=== PATIENT | male | born 2000 | race Caucasian/White ===

== ENCOUNTER 2023-08-01 19:06 | Emergency (ER) | payer MEDICAID, SELFPAY ==
[2023-08-01 19:07] VITALS: BP 186/107; PULSE 139; RESP 18; TEMP 36.7; O2SAT 98; BMI 40.6
--- NOTE | 2023-08-01 19:19 | ED_ITS ---
HPI - General Adult 2 General: Chief complaint: Wound/Laceration Stated complaint: etoh,psych eval Time Seen by Provider: 08/01/23 19:07 Source: patient and EMS Mode of arrival: EMS Limitations: no limitations History of Present Illness: 23-year-old male who states he has been drinking heavily today states he got angry and punched a window he does have a laceration to his right forearm. He had made statements to his grandfather about hurting himself but he states that he was just angry and intoxicated he denies being suicidal or homicidal to me he denied any SI to EMS as well. Associated symptoms: Deny chest pain, dyspnea, headache(s), nausea, rash or vomiting Review of Systems 2 Const: Denies: fever(s), chills, body aches or change in appetite ENMT: Denies: throat pain or dental pain Card: Denies: chest pain Resp: Denies: dyspnea GI: Denies: abdominal pain, nausea, vomiting or diarrhea Musc: Denies: neck pain or back pain Skin/Breast: Denies: rash Neuro: Denies: headache(s) Psych: Denies: depression or suicidal ideation Physical Exam 2 Const: COMMON NORMALS: no acute distress, patient oriented x3 and healthy appearing HENMT: COMMON NORMALS: normocephalic and atraumatic HEAD & SCALP: n ormocephalic and atraumatic Neck/C-Spine: COMMON NORMALS: full ROM and supple Chest: COMMONS NORMALS: normal inspection of the chest and normal palpation of entire chest wall Resp: COMMON NORMALS: normal respiratory effort, No retractions, No use of accessory muscles and clear to auscultation bilaterally AUSCULTATION: clear to auscultation bilaterally Cardio: COMMON NORMALS: regular rate, regular rhythm and No murmurs present (Cardio) RATE: regular rate RHYTHM: regular rhythm Extremity: COMMON NORMALS: full ROM NARRATIVE EXTREMITY EXAM: 2 lacerations noted to right forearm 1 i s roughly 2 cm others 4 involving subcu please controlled no tendon involvement no active bleeding Neuro: COMMON NORMALS: patient oriented x3, moves all extremities and no focal motor deficits Psych: COMMON NORMALS: mental status grossly normal, Normal thought process present and cooperative THOUGHT PROCESS: Normal thought process present Skin: COMMON NORMALS: no rashes or lesions noted and no wounds GENERAL SKIN EXAM: no rashes or lesions noted Course 2 Vital Signs: Vital signs: Vital Signs Temperature 98.0 F 08/01/23 19:07 Pulse Rate 99 08/01/23 21:07 Respiratory Rate 18 08/01/23 19:07 Blood Pressure 180/107 08/01/23 19:45 Pulse Oximetry 95 08/01/23 21:07 Oxygen Delivery Me thod Room Air 08/01/23 19:07 MDM - General Adult Medical Decision Making Patient presents here with lacerations to his right forearm he got from punching a window patient is adamant he is not suicidal or homicidal he is intoxicated I did ask him again at discharge and he denied states he just got angry and punched the window he is to have his sutures removed in 2 weeks he stable for discharge return if worsening. Laceration was repaired by midlevel [facility] patient refused x-rays here. Lab Data 08/01/23 20:22 08/01/23 19:22 Laboratory Results WBC 7.48 10^3/uL (3.29-11.43) 08/01/23 20:22 Corrected WBC Cancelled 08/01/23 19:22 RBC 4.64 10^6/uL (3.85-5.65) 08/01/23 20:22 Hgb 15.30 g/dL (11.27-16.99) 08/01/23 20:22 Hct 41.7 % (37-53) 08/01/23 20:22 MCV 89.9 fl (82-101) 08/01/23 20:22 MCH 33.0 pg (27-33) 08/01/23 20:22 MCHC 36.7 g/dL (30-55) 08/01/23 20:22 RDW 12.4 % (12.1-15.1) 08/01/23 20:22 Plt Count 203 10^3/cmm (157-399) 08/01/23 20:22 MPV 10.0 fL (7.4-10.4) 08/01/23 20:22 Gran % Cancelled 08/01/23 19:22 Neut % (Auto) 71.3 % 08/01/23 20:22 Lymph % (Auto) 17.2 % 08/01/23 20:22 Carter % (Auto) 6.3 % 08/01/23 20:22 Eos % (Auto) 4.0 % 08/01/23 20:22 Baso % (Auto) 0.8 % 08/01/23 20:22 Neut # (Auto) 5.33 10^3/uL (1.8-7.7) 08/01/23 20:22 Lymph # (Auto) 1.3 10^3/uL (0.8-4.8) 08/01/23 20:22 Carter # (Auto) 0.5 10^3/uL (0.2-0.9) 08/01/23 20:22 Eos # (Auto) 0.3 10^3/uL (0.0-0.8) 08/01/23 20:22 Baso # (Auto) 0.1 10^3/uL (0.0-0.1) 08/01/23 20:22 Absolute Gran (auto) Cancelled 08/01/23 19:22 Nucleated RBC % (auto) 0 % 08/01/23 20:22 Nucleated RBCs # 0.0 /100WBC 08/01/23 20:22 Sodium 142 mmol/L (136-145) 08/01/23 19:22 Potassium 3.7 mmol/L (3.5-5.1) 08/01/23 19:22 Chloride 105 mmol/L (98-107) 08/01/23 19:22 Carbon Dioxide 21 mmol/L (22-29) L 08/01/23 19:22 Anion Gap 19.7 (5-19) H 08/01/23 19:22 BUN 7 mg/dL (6-20) 08/01/23 19:22 Creatinine 0.8 mg/dL (0.7-1.2) 08/01/23 19:22 GFR Calculation 118.8 mL/min (90-130) 08/01/23 19:22 Glucose 105 mg/dL (65-115) 08/01/23 19:22 Calculated Osmolality 292 mOsm/kg (285-295) 08/01/23 19:22 Calcium 8.4 mg/dL (8.5-10.5) L 08/01/23 19:22 Total Bilirubin 0.4 mg/dL (0.15-1.2) 08/01/23 19:22 AST 22 U/L (0-40) 08/01/23 19:22 ALT 26 U/L (0-41) 08/01/23 19:22 Alkaline Phosphatase 96 U/L (40-130) 08/01/23 19:22 Total Protein 7.1 g/dL (6.6-8.7) 08/01/23 19:22 Albumin 4.3 g/dL (3.5-5.2) 08/01/23 19:22 Globulin 2.8 g/dL (1.3-4.6) 08/01/23 19:22 Salicylates < 0.3 mg/dL (3-10) L 08/01/23 19:22 Acetaminophen < 5.0 ug/mL (10-30) L 08/01/23 19:22 Ethyl Alcohol 119 mg/dL (0-10) H 08/01/23 19:22 No radiology studies performed this visit Discharge Plan Discharge Patient Disposition: Home Clinical Impression: Laceration of right forearm Condition: Stable Discharge Orders: Discharge ED (Routine); Ordered 08/01/23 Ordered By: Blue Fairchild Discharge Diet: Advance as tolerated Discharge Activity: Resume usual activity Patient Instructions: Laceration (ED) Activity Restrictions/Additional Instructions: suture removal in 14 days Coding Level of Care Code ED Psychiatric Specialist for Maryam Avery
[2023-08-01 19:39] VITALS: BP 186/107
[2023-08-01 19:43] LABS: Alanine Aminotransferase 26 U/L (0-41); Albumin Level 4.3 g/dL (3.5-5.2); Alcohol Level 119 mg/dL (0-10); Alkaline Phosphatase 96 U/L (40-130); Anion Gap 19.7 (5-19); Aspartate Amino Transferase 22 U/L (0-40); Blood Urea Nitrogen 7 mg/dL (6-20); Calcium 8.4 mg/dL (8.5-10.5); Carbon Dioxide 21 mmol/L (22-29); Chloride 105 mmol/L (98-107); Creatinine Clr Calc Pharmacy 203.3851; Globulin 2.8 g/dL (1.3-4.6); Glomerular Filtration Rate 118.8 mL/min (90-130); Glucose 105 mg/dL (65-115); Osmolality Calculated 292 mOsm/kg (285-295); Potassium 3.7 mmol/L (3.5-5.1); Sodium 142 mmol/L (136-145); Total Bilirubin 0.4 mg/dL (0.15-1.2); Total Protein 7.1 g/dL (6.6-8.7)
[2023-08-01 19:45] VITALS: BP 180/107
[2023-08-01] MEDS: lidocaine 1% INJ 10 mL (per mL) 20 ML INTRADERMA (19:55)
[2023-08-01 20:02] LABS: Acetaminophen < 5.0 ug/mL (10-30); Salicylate < 0.3 mg/dL (3-10)
[2023-08-01 20:28] LABS: Basophils # 0.1 10^3/uL (0.0-0.1); Basophils % 0.8 %; Eosinophils # 0.3 10^3/uL (0.0-0.8); Hematocrit 41.7 % (37-53); Lymphocytes # 1.3 10^3/uL (0.8-4.8); Lymphocytes % 17.2 %; Mean Corpuscular HGB Conc 36.7 g/dL (30-55); Mean Corpuscular Volume 89.9 fl (82-101); Monocytes # 0.5 10^3/uL (0.2-0.9); Monocytes % 6.3 %; Neutrophils # 5.33 10^3/uL (1.8-7.7); Neutrophils % 71.3 %; Nucleated Red Blood Cells % 0 %; Platelet Count 203 10^3/cmm (157-399); Red Blood Count 4.64 10^6/uL (3.85-5.65); Red Cell Distribution Width 12.4 % (12.1-15.1); White Blood Count 7.48 10^3/uL (3.29-11.43)
--- NOTE | 2023-08-01 20:43 | PC.NURSE ---
pt asked for his phone and belongings back. Gurinder said yes, he was not holding him as a SI pt.
[2023-08-01 21:07] VITALS: PULSE 99; O2SAT 95
--- NOTE | 2023-08-01 21:17 | W.ED.WOUNDLC ---
Documented by User: DANK Lange 08/01/23 21:20 HPI - Wound/Laceration General: Chief Complaint: Wound/Laceration Stated Complaint: etoh,psych eval Time Seen by Provider: 08/01/23 19:07 Source: patient and EMS Mode of arrival: EMS Limitations: no limitations Procedures Laceration Laceration 1: Site: upper extremity Side (If applicable): right Size (cm): 9 Description: linear Depth: involves muscle layer Local Anesthetic: lidocaine 2% and with epi Amount of anesthesia used (mL): 10 Pre-repair: wound explored, irrigated extensively and deep structures intact Skin layer closed with: nylon Size (cm): 4-0 Number of sutures: 15 Technique: simple, interrupted Subcutaneous layer closed with: vicryl Size: 4-0 Number of sutures: 5 Technique: other (deep dermal) Laceration 2: Site: upper extremity Side (If applicable): right Size (cm): 5 Description: linear Depth: simple, single layer and involves muscle layer Local Anesthetic: lidocaine 2% and with epi Amount of anesthesia used (mL): 4 Pre-repair: wound explored, irrigated extensively and deep structures intact Skin layer closed with: nylon Size (cm): 4-0 Number of sutures: 6 Technique: simple, interrupted Course Vital Signs: Vital signs: Vital Signs Temperature 98.0 F 08/01/23 19:07 Pulse Rate 99 08/01/23 21:07 Respiratory Rate 18 08/01/23 19:07 Blood Pressure 180/107 08/01/23 19:45 Pulse Oximetry 95 08/01/23 21:07 Oxygen Delivery Me thod Room Air 08/01/23 19:07 MDM - Wound/Laceration Lab Data 08/01/23 20:22 08/01/23 19:22 Laboratory Results WBC 7.48 10^3/uL (3.29-11.43) 08/01/23 20:22 Corrected WBC Cancelled 08/01/23 19:22 RBC 4.64 10^6/uL (3.85-5.65) 08/01/23 20:22 Hgb 15.30 g/dL (11.27-16.99) 08/01/23 20:22 Hct 41.7 % (37-53) 08/01/23 20:22 MCV 89.9 fl (82-101) 08/01/23 20:22 MCH 33.0 pg (27-33) 08/01/23 20:22 MCHC 36.7 g/dL (30-55) 08/01/23 20:22 RDW 12.4 % (12.1-15.1) 08/01/23 20:22 Plt Count 203 10^3/cmm (157-399) 08/01/23 20:22 MPV 10.0 fL (7.4-10.4) 08/01/23 20:22 Gran % Cancelled 08/01/23 19:22 Neut % (Auto) 71.3 % 08/01/23 20:22 Lymph % (Auto) 17.2 % 08/01/23 20:22 Haakon % (Auto) 6.3 % 08/01/23 20:22 Eos % (Auto) 4.0 % 08/01/23 20:22 Baso % (Auto) 0.8 % 08/01/23 20:22 Neut # (Auto) 5.33 10^3/uL (1.8-7.7) 08/01/23 20:22 Lymph # (Auto) 1.3 10^3/uL (0.8-4.8) 08/01/23 20:22 Haakon # (Auto) 0.5 10^3/uL (0.2-0.9) 08/01/23 20:22 Eos # (Auto) 0.3 10^3/uL (0.0-0.8) 08/01/23 20:22 Baso # (Auto) 0.1 10^3/uL (0.0-0.1) 08/01/23 20:22 Absolute Gran (auto) Cancelled 08/01/23 19:22 Nucleated RBC % (auto) 0 % 08/01/23 20:22 Nucleated RBCs # 0.0 /100WBC 08/01/23 20:22 Sodium 142 mmol/L (136-145) 08/01/23 19:22 Potassium 3.7 mmol/L (3.5-5.1) 08/01/23 19:22 Chloride 105 mmol/L (98-107) 08/01/23 19:22 Carbon Dioxide 21 mmol/L (22-29) L 08/01/23 19:22 Anion Gap 19.7 (5-19) H 08/01/23 19:22 BUN 7 mg/dL (6-20) 08/01/23 19:22 Creatinine 0.8 mg/dL (0.7-1.2) 08/01/23 19:22 GFR Calculation 118.8 mL/min (90-130) 08/01/23 19:22 Glucose 105 mg/dL (65-115) 08/01/23 19:22 Calculated Osmolality 292 mOsm/kg (285-295) 08/01/23 19:22 Calcium 8.4 mg/dL (8.5-10.5) L 08/01/23 19:22 Total Bilirubin 0.4 mg/dL (0.15-1.2) 08/01/23 19:22 AST 22 U/L (0-40) 08/01/23 19:22 ALT 26 U/L (0-41) 08/01/23 19:22 Alkaline Phosphatase 96 U/L (40-130) 08/01/23 19:22 Total Protein 7.1 g/dL (6.6-8.7) 08/01/23 19:22 Albumin 4.3 g/dL (3.5-5.2) 08/01/23 19:22 Globulin 2.8 g/dL (1.3-4.6) 08/01/23 19:22 Salicylates < 0.3 mg/dL (3-10) L 08/01/23 19:22 Acetaminophen < 5.0 ug/mL (10-30) L 08/01/23 19:22 Ethyl Alcohol 119 mg/dL (0-10) H 08/01/23 19:22 Discharge Plan Discharge Patient Disposition: Home Clinical Impression: Laceration of right forearm Condition: Stable Discharge Orders: Discharge ED (Routine); Ordered 08/01/23 Ordered By: Blue Fairchild Discharge Diet: Advance as tolerated Discharge Activity: Resume usual activity Patient Instructions: Laceration (ED) Activity Restrictions/Additional Instructions: suture removal in 14 days Coding Level of Care Code ED Anatomic Pathologist for Chg Fwd Documented by User: Blue Fairchild MD 08/01/23 21:30 HPI - Wound/Laceration General: Chief Complaint: Wound/Laceration Stated Complaint: etoh,psych eval Time Seen by Provider: 08/01/23 19:07 History of Present Illness: ... Course Vital Signs: Vital signs: Vital Signs Temperature 98.0 F 08/01/23 19:07 Pulse Rate 99 08/01/23 21:07 Respiratory Rate 18 08/01/23 19:07 Blood Pressure 180/107 08/01/23 19:45 Pulse Oximetry 95 08/01/23 21:07 Oxygen Delivery Me thod Room Air 08/01/23 19:07 MDM - Wound/Laceration Medical Decision Making ... Lab Data 08/01/23 20:22 08/01/23 19:22 Laboratory Results WBC 7.48 10^3/uL (3.29-11.43) 08/01/23 20:22 Corrected WBC Cancelled 08/01/23 19:22 RBC 4.64 10^6/uL (3.85-5.65) 08/01/23 20:22 Hgb 15.30 g/dL (11.27-16.99) 08/01/23 20:22 Hct 41.7 % (37-53) 08/01/23 20:22 MCV 89.9 fl (82-101) 08/01/23 20:22 MCH 33.0 pg (27-33) 08/01/23 20:22 MCHC 36.7 g/dL (30-55) 08/01/23 20:22 RDW 12.4 % (12.1-15.1) 08/01/23 20:22 Plt Count 203 10^3/cmm (157-399) 08/01/23 20:22 MPV 10.0 fL (7.4-10.4) 08/01/23 20:22 Gran % Cancelled 08/01/23 19:22 Neut % (Auto) 71.3 % 08/01/23 20:22 Lymph % (Auto) 17.2 % 08/01/23 20:22 Haakon % (Auto) 6.3 % 08/01/23 20:22 Eos % (Auto) 4.0 % 08/01/23 20:22 Baso % (Auto) 0.8 % 08/01/23 20:22 Neut # (Auto) 5.33 10^3/uL (1.8-7.7) 08/01/23 20:22 Lymph # (Auto) 1.3 10^3/uL (0.8-4.8) 08/01/23 20:22 Haakon # (Auto) 0.5 10^3/uL (0.2-0.9) 08/01/23 20:22 Eos # (Auto) 0.3 10^3/uL (0.0-0.8) 08/01/23 20:22 Baso # (Auto) 0.1 10^3/uL (0.0-0.1) 08/01/23 20:22 Absolute Gran (auto) Cancelled 08/01/23 19:22 Nucleated RBC % (auto) 0 % 08/01/23 20:22 Nucleated RBCs # 0.0 /100WBC 08/01/23 20:22 Sodium 142 mmol/L (136-145) 08/01/23 19:22 Potassium 3.7 mmol/L (3.5-5.1) 08/01/23 19:22 Chloride 105 mmol/L (98-107) 08/01/23 19:22 Carbon Dioxide 21 mmol/L (22-29) L 08/01/23 19:22 Anion Gap 19.7 (5-19) H 08/01/23 19:22 BUN 7 mg/dL (6-20) 08/01/23 19:22 Creatinine 0.8 mg/dL (0.7-1.2) 08/01/23 19:22 GFR Calculation 118.8 mL/min (90-130) 08/01/23 19:22 Glucose 105 mg/dL (65-115) 08/01/23 19:22 Calculated Osmolality 292 mOsm/kg (285-295) 08/01/23 19:22 Calcium 8.4 mg/dL (8.5-10.5) L 08/01/23 19:22 Total Bilirubin 0.4 mg/dL (0.15-1.2) 08/01/23 19:22 AST 22 U/L (0-40) 08/01/23 19:22 ALT 26 U/L (0-41) 08/01/23 19:22 Alkaline Phosphatase 96 U/L (40-130) 08/01/23 19:22 Total Protein 7.1 g/dL (6.6-8.7) 08/01/23 19:22 Albumin 4.3 g/dL (3.5-5.2) 08/01/23 19:22 Globulin 2.8 g/dL (1.3-4.6) 08/01/23 19:22 Salicylates < 0.3 mg/dL (3-10) L 08/01/23 19:22 Acetaminophen < 5.0 ug/mL (10-30) L 08/01/23 19:22 Ethyl Alcohol 119 mg/dL (0-10) H 08/01/23 19:22 No radiology studies performed this visit Discharge Plan Discharge Patient Disposition: Home Clinical Impression: Laceration of right forearm Condition: Stable Discharge Orders: Discharge ED (Routine); Ordered 08/01/23 Ordered By: Blue Fairchild Discharge Diet: Advance as tolerated Discharge Activity: Resume usual activity Patient Instructions: Laceration (ED) Activity Restrictions/Additional Instructions: suture removal in 14 days Coding Level of Care Code ED Anatomic Pathologist for Maryam Avery
== END 2023-08-01 21:14 | disposition home or self-care (01) ==
PROVIDERS: Emergency Provider Emergency Medicine
DX: S51.811A Laceration without foreign body of right forearm, initial encounter (principal); W25.XXXA Contact with sharp glass, initial encounter
CPT/HCPCS: 12002; 12034; 36415; 80053; 80307; 85025; 96372; 99283